=== PATIENT | female | born 1965 | race Caucasian/White ===

== ENCOUNTER 2021-02-12 02:16 | Emergency (ER) | payer BC ==
[2021-02-12 04:39] VITALS: BP 135/76; PULSE 90; RESP 18; TEMP 98.5
--- NOTE | 2021-02-12 05:24 | ED ---
Recheck HPI - General Chief Complaint: Recheck/Abnormal Lab/Rx Stated Complaint: Covid Test Time Seen by Provider: 02/12/21 04:49 Source: patient, RN notes reviewed, old records reviewed Mode of arrival: ambulatory Limitations: no limitations - History of Present Illness Initial Comments: This is a 55-year-old female presented today for evaluation, patient needs coronavirus testing and needs to get to [facility] states that she requested coronavirus test that she has no symptoms MD Complaint: medication refill request (Coronavirus testing) -: minutes(s) Returns Today for: request for prescription (Need to coronavirus test) Symptoms Since Prior Visit: no new symptoms Context: planned re-check Associated Symptoms: none Treatments Prior to Arrival: other (none) - Related Data Allergies Allergy/AdvReac Type Severity Reaction Status Date / Time celecoxib [From Celebrex] Allergy Rash/Hives Verified 02/12/21 04:40 duloxetine [From Cymbalta] Allergy Unknown Verified 02/12/21 04:40 Iodinated Contrast Media Allergy Unknown Verified 02/12/21 04:40 codeine AdvReac Nausea & Verified 02/12/21 04:40 Vomiting Review of Systems ROS Statement: Those systems with pertinent positive or pertinent negative responses have been documented in the HPI. ROS Other: All systems not noted in ROS Statement are negative. Past Medical History Past Medical History: Diabetes Mellitus History of Any Multi-Drug Resistant Organisms: None Reported Past Surgical History: Orthopedic Surgery Past Psychological History: Anxiety, Depression, Panic Disorder Smoking Status: Never smoker Past Alcohol Use History: None Reported Past Drug Use History: None Reported General Exam Limitations: no limitations General appearance: alert, in no apparent distress Head exam: Present: atraumatic, normocephalic, normal inspection Eye exam: Present: normal appearance, PERRL, EOMI. Absent: scleral icterus, conjunctival injection, periorbital swelling ENT exam: Present: normal exam, mucous membranes moist Neck exam: Present: normal inspection. Absent: tenderness, meningismus, lymphadenopathy Cardiovascular Exam: Present: regular rate, normal rhythm, gallop, other Extremities exam: Present: normal inspection, full ROM Back exam: Present: normal inspection Neurological exam: Present: alert, oriented X3, CN II-XII intact Psychiatric exam: Present: normal affect, normal mood Skin exam: Present: warm, dry, intact, normal color. Absent: rash Course Vital Signs 02/12/21 04:37 Temperature 98.5 F Pulse Rate 90 Respiratory 18 Rate Blood Pressure 135/76 O2 Sat by Pulse 97 Oximetry - Reevaluation(s) Reevaluation #1: 02/12/21 06:31 Medical records reviewed Reevaluation #2: 02/12/21 06:31 Patient is informed of results Medical Decision Making - Medical Decision Making 55 female negative coronavirus test. Patient can be discharged home - Lab Data Lab Results 02/12/21 Range/Units 04:41 Coronavirus (PCR) Not Detected (Not Detectd) Disposition Clinical Impression: Normal exam Disposition: HOME SELF-CARE Condition: Good Instructions (If sedation given, give patient instructions): Normal Exam (ED) Is patient prescribed a controlled substance at d/c from ED?: No Referrals: None,Stated [Primary Care Provider] - 1-2 days
== END 2021-02-12 06:59 | disposition home or self-care (01) ==
LOC: EC 02:16
DX: Z11.52 Encounter for screening for COVID-19 (principal); Z20.822 Contact with and (suspected) exposure to COVID-19; E11.9 Type 2 diabetes mellitus without complications
CPT/HCPCS: 87635; 99282